=== PATIENT | male | born 1965 | race Asian ===

== ENCOUNTER → 2017-02-25 | Day surgery (SDC) | payer BC ==
[2017-02-25] VITALS (7 sets, daily range): BP systolic 86–161; BP diastolic 69–88
[~2017-02-25] VITALS: Ht 177.8 cm; Wt 93.0 kg
[~2017-02-25] MED LIST: AMLODIPINE BESYL5 MG ORAL; BSS 15ml BTL ONE; BSS 500ml btl ONE; Bupivacaine 0.75% 30ml vial INJ ONE; Carbachol 0.01% Op Soln 1.5ml vial ONE; Cyclopentolate 1% Opth Sol ONE; EPINEPHrine 1mg/1ml Amp ONE; Goniosol 2.5% Opth Soln - 15ml ONE; Kenalog-10 5ml Inj ONE; Kenalog-40 1ml Vial ONE; LOSARTAN POTASS50 MG ORAL; LR 1000ml ONE; LUMIGAN2.5 ML RIGHT EYE; Lidocaine 1% MPF 10mg/ml 5ml ONE; Lidocaine 2% MPF 5ml Vial INJ ONE; Maxitrol Opth Oint 3.5gm ONE; Metoclopramide 10mg/2ml Inj IVP PRN; Midazolam 2mg/2ml Inj ONE; NS Irrig 1000ml ONE; Phenylephrine 2.5% Op Soln ONE; Povidone-Iodine 5% opth solution ONE; Propofol 10mg/ml 20ml IV ONE; SIMBRINZA 1%-0.28 ML OP; Sodium Hyaluronate 10 mg/ml 0.85ml ONE; Sterile Water Irrig 1000ml IRRIG ONE; Tetracaine 0.5% Opth Soln ONE; Timolol 0.5% Op Soln 2.5ml ONE; fentaNYL 100 mcg/2 mL IV PRN
[2017-02-25] MEDS: Cyclopentolate 1% Opth Sol RIGHT EYE SCH ×3 (11:56→12:12)
[2017-02-25] MEDS: Phenylephrine 2.5% Op Soln RIGHT EYE SCH ×3 (11:57→12:12)
--- NOTE | 2017-02-25 13:42 | Pre-Procedure Note/Attestation ---
Pre-Procedure Note/Attestation Complete Prior to Procedure Planned Procedure: right Procedure Narrative: PPV, Removal of dislocated IOL, secondary IOL Indications for Procedure Pre-Operative Diagnosis: Dislocated IOL Attestation I attest that I discussed the nature of the procedure; its benefits; risks and complications; and alternatives (and the risks and benefits of such alternatives ), prior to the procedure, with the patient (or the patient's legal security systems sales representative). I attest that, if there was a reasonable possibility of needing a blood transfusion, the patient (or the patient's legal security systems sales representative) was given the [facility] standardized written summary, pursuant to the [place] Blood Safety Act ([place] Health and Safety Code # 1645, as amended). I attest that I re-evaluated the patient just prior to the surgery and that there has been no change in the patient's H&P, except as documented below: TRISTAN DASILVA M.D. Feb 25, 2017 13:42
--- NOTE | 2017-02-25 15:05 | Anethesia Preoperative Eval ---
Anesthesia Pre-op PMH/ROS General Date of Evaluation: Feb 25, 2017 Time of Evaluation: 15:03 Anesthesiologist: heike ASA Score: ASA 2 Mallampati Score Class I : Soft palate, uvula, fauces, pillars visible Class II: Soft palate, uvula, fauces visible Class III: Soft palate, base of uvula visible Class IV: Only hard plate visible Mallampati Classification: Class II Surgeon: berto Diagnosis: dislocated IOL Surgical Procedure: Right eye vitrectomy Anesthesia History: none Family History: no anesthesia problems Allergies: Coded Allergies: No Known Allergies (Unverified , 02/24/17) Medications: see eMAR Past Medical History Cardiovascular: Reports: HTN Pulmonary: Denies: COPD, CK, asthma, other Gastrointestinal/Genitourinary: Denies: CRI, ESRD, GERD, other Neurologic/Psychiatric: Denies: CVA, TIA, dementia, depression/anxiety, other Endocrine: Denies: DM, hypothyroidism, other, steroids HEENT: Reports: other - dislocated IOL, Denies: [place] (L), [place] (R), cataract (L), cataract (R), glaucoma Musculoskeletal/Integumentary: Denies: DDD, DJD, OA, RA, edema, other Other: obesity Anesthesia Pre-op Phys. Exam Physician Exam Last Vital Signs Date Time Temp Pulse Resp B/P Pulse Ox O2 Delivery O2 Flow Rate FiO2 02/25/17 11:58 97.1 76 18 161/86 Room Air Constitutional: NAD Neurologic: CN 2-12 intact Cardiovascular: RRR Respiratory: CTA Gastrointestinal: S/NT/ND Airway Exam Mallampati Score: Class II MO: full ROM: full Dentures: no lower, no upper Anesthesia Pre-op A/P Studies Pre-op Studies: EKG - sr Risk Assessment & Plan Plan: mac Status Change Before Surgery: No Pre-Antibiotics Drug: ancef Given Within 1 Hr of Incision: Yes Time Given: 14:00 LYSSA TAVARES CRNA Feb 25, 2017 15:05
--- NOTE | 2017-02-25 15:43 | Operative Note - PDOC ---
Operative Note Operative Note Date of Operation/Procedure: Feb 25, 2017 Pre-op Diagnosis: Dislocated IOL Procedure: PPV/Removal of dislocated IOL, Secondary IOL Post-op Diagnosis: Same Post-op Diagnosis: same as pre-op Surgeon: arlette Dasilva Anesthesia: MAC Specimen: yes Complications: none Condition: stable Estimated Blood Loss: none Drains: none Implant(s) used?: Yes ARLETTE DASILVA M.D. Feb 25, 2017 15:43
--- NOTE | 2017-02-25 15:46 | Immediate Post-Op Evaluation ---
Immediate Post-Op Evalulation Immediate Post-Op Evalulation Procedure: vitrectomy Date of Evaluation: Feb 25, 2017 Time of Evaluation: 15:44 IV Fluids: 800 Blood Pressure Systolic: 120 Blood Pressure Diastolic: 60 Pulse Rate: 59 Respiratory Rate: 14 O2 Sat by Pulse Oximetry: 99 Temperature (Fahrenheit): 97.3 Nausea: No Vomiting: No Complications none Patient Status: awake, reacts, patent Hydration Status: adequate Drug: ancef Given Within 1 Hr of Incision: Yes Time Given: 14:00 LYSSA TAVARES CRNA Feb 25, 2017 15:46
--- NOTE | 2017-02-25 23:45 | Operative Note - Dictated ---
DATE OF OPERATION: 02/25/2017 SURGEON: Oskar Palmer M.D. PROCEDURES: Pars plana vitrectomy, removal of dislocated intraocular lens implant, and placement of secondary intraocular lens implant, posterior chamber, Wai model MA50BM power 23.0 diopters. INDICATION FOR SURGERY: Dislocated intraocular lens implant. PREOPERATIVE DIAGNOSIS: Dislocated intraocular lens implant. POSTOPERATIVE DIAGNOSIS: Dislocated intraocular lens implant. ANESTHESIA: Peribulbar and retrobulbar with MAC. COMPLICATIONS: None. Operative Procedure: Following the detailed discussion of risks, benefits, and alternatives, informed consent was obtained. The patient was taken to the operating room suite where intravenous sedation was administered followed by administration of 8 mL of 50:50 mixture of lidocaine 2% and Marcaine 0.75% into the peribulbar and retrobulbar spaces of the right eye. The surgical field was prepped and draped in the usual sterile fashion. A 23-gauge pars plana infusion cannula was inserted 3.5 mm behind the limbus and the infratemporal quadrant was inspected and switched. A 23-gauge cannula was inserted 3.5 mm behind the limbus in each of the supratemporal and supranasal quadrants. The eye was entered with light probe and vitrectomy probe. Vitrectomy was performed releasing vitreous adhesions around the dislocated intraocular lens implant and freeing the intraocular lens. A 25-gauge chandelier was placed 3.5 mm behind the limbus in the intranasal quadrants. Following vitrectomy, the eye was entered with intraocular forceps and intraocular scissors and small cut was made in the edge of the lens implant. This was followed by use of two intraocular forceps and the lens implant was divided into two equal parts. At this point, corneal incision was made using a keratome superiorly. A viscoelastic was introduced into the anterior chamber and the eye was reentered with intraocular forceps and each of the intraocular lens implant halves was grasped with the intraocular forceps and was brought up into the pupillary membrane and was regrasped with forceps introduced through the corneal incision under viscoelastic. Each half of the implant was gently removed through the corneal incision. This was performed very smoothly and was followed by insertion of posterior chamber intraocular lens implant Wai model MA50BM 23.0 diopters into anterior chamber. The corneal incision was closed with the single 10-0 nylon suture. The nylon suture was turned. This was followed by making tunnelled using a 25-gauge sclerotomy cannula 2 mm posterior to the limbus in parallel to the limbus superiorly and inferiorly. The internal openings were at 6 o'clock and 12 o'clock meridians. Two forceps were introduced through the sclerotomy cannulas and at first, the inferior haptic of the lens implant was placed behind the pupil and grasped with the inferior forceps through the inferior 25-gauge cannula and was externalized through the sclerotomy tunnel. This was performed uneventfully. Same maneuver was performed with the superior haptic. The tension on the haptics were adjusted and cautery was used to trim the another haptics, which were buried into the tunnel both superiorly and inferiorly. This was performed uneventfully. The eye was reentered with light probe and vitrectomy probe. Retina was inspected. No retinal breaks or detachments were identified. Endolaser photocoagulation was applied to periphery and to the retinal lattice and also possibly to vitreous space. This was performed uneventfully. The sclerotomy cannulas were removed. Sclerotomies were closed with 8-0 Vicryl suture. Sub-Tenon injection of Kenalog and subconjunctival vancomycin was administrated followed by topical timolol. A patch and a shield was put in place. At the end of the procedure, intraocular pressure was satisfactory and retina was attached and intraocular lens implant was well positioned. COMMENTS: The patient made excellent recovery from surgery and will be evaluated in one day. Importance of compliance with evaluation and medication reemphasized. Oskar Palmer M.D. DR: AKIKO JOB#: [id number] CC:
[2017-02-26 11:00] VITALS: BP 143/90
--- NOTE | 2017-02-26 11:00 | 48 Hour Post Anesthesia Eval ---
Post Anesthesia Evaluation Procedure: vitrectomy Date of Evaluation: Feb 26, 2017 Time of Evaluation: 10:59 Blood Pressure Systolic: 143 0: 90 Pulse Rate: 70 Respiratory Rate: 14 O2 Sat by Pulse Oximetry: 99 Airway: patent Nausea: No Vomiting: No Hydration Status: adequate Cardiopulmonary Status: stable Mental Status/LOC: patient returned to baseline Post-Anesthesia Complications: none Follow-up care needed: N/A LYSSA TAVARES CRNA Feb 26, 2017 11:00
== END | disposition home or self-care (01) ==
LOC: SUR 11:08
DX: T85.22XA Displacement of intraocular lens, initial encounter (principal); Y83.8 Other surgical procedures as the cause of abnormal reaction of the patient, or of later complication, without mention of misadventure at the time of the procedure; Y92.89 Other specified places as the place of occurrence of the external cause; M10.9 Gout, unspecified; I10 Essential (primary) hypertension; Z87.891 Personal history of nicotine dependence
CPT/HCPCS: 66986; J0171; J2250; J2405; J2704; J3301; J3370; J3490; J7120; V2632; 94003; 94150